=== PATIENT | female | born 1990 | race Two or more races ===

== ENCOUNTER 2016-11-08 02:15 | Emergency (ER) | payer OTHER ==
[~2016-11-08] VITALS: Ht 170.2 cm; Wt 81.6 kg
[2016-11-08] MEDS ORDERED: NKM (02:24)
[2016-11-08 02:33] VITALS: BP 140/86
--- NOTE | 2016-11-08 02:38 | Emergency Room Report ---
History of Present Illness General Chief Complaint: Substance Abuse Source: Patient Present Illness HPI Patient presents after drinking alcohol and doing cocaine. She's had a problem with use of crystal in the past. She was angry at the social situations and decided to try cocaine instead of crystal. She has chest discomfort and paranoid thoughts and is worried about whether she had overdosed. She has a headache. She denies any chest pain nausea vomiting. Diarrhea, brown color. She states is not . Has a headache 5/10, pounding, generalized, not radiate. Denies SI or HI. Never seen therapist or psychiatrist regarding substance abuse or depression. Allergies: Coded Allergies: No Known Allergies (Unverified , 11/08/16) Patient History Past Medical History: see triage record Social History: Reports: alcohol use, drug use, smoking Social History Narrative works at [employer] Last Menstrual Period: a week ago Reviewed Nursing Documentation: PMH: Agreed, PSxH: Agreed Nursing Documentation-PMH Past Medical History: No Stated History Review of Systems All Other Systems: negative except mentioned in HPI Physical Exam Vital Signs Date Time Temp Pulse Resp B/P Pulse Ox O2 Delivery O2 Flow Rate FiO2 11/08/16 02:21 97.9 101 20 140/86 97 Room Air Sp02 EP Interpretation: reviewed, normal General Appearance: well appearing, no apparent distress, GCS 15 Head: normocephalic Eyes: bilateral eye PERRL, bilateral eye normal inspection ENT: moist mucus membranes Neck: supple Respiratory: lungs clear, normal breath sounds Cardiovascular #1: regular rate, rhythm, tachycardia - slight Cardiovascular #2: 2+ radial (R) Gastrointestinal: normal inspection, normal bowel sounds, non tender, no mass, non-distended Musculoskeletal: back normal, gait/station normal, normal range of motion Neurologic: alert, oriented x3, motor strength/tone normal, DTRs symmetric, sensory intact, normal gait, speech normal Psychiatric: no suicidal/homicidal ideation, depressed affect, anxious Skin: normal inspection, warm/dry Medical Decision Making Diagnostic Impression: Primary Impression: Adverse reaction to cocaine Qualified Codes: T40.5X5A - Adverse effect of cocaine, initial encounter ER Course Patient presents after ingestion of alcohol and cocaine. Differential includes acute myocardial infarction, likely abnormalities, renal failure and rhabdomyolysis. She'll receive IV hydration and Tylenol for her headache. In addition to that we will be performing EKG and also electrolytes tox screen. EKG normal. Labs with + tox. Patient improved with observation. Discussed need for outside help - both psych and 12 step. Patient stable for outpatient observation and treatment. Laboratory Tests Test 11/08/16 02:40 White Blood Count 5.9 K/UL (4.8-10.8) Red Blood Count 4.34 M/UL (4.20-5.40) Hemoglobin 13.2 G/DL (12.0-16.0) Hematocrit 39.5 % (37.0-47.0) Mean Corpuscular Volume 91 FL (80-99) Mean Corpuscular Hemoglobin 30.3 PG (27.0-31.0) Mean Corpuscular Hemoglobin Concent 33.4 G/DL (32.0-36.0) Red Cell Distribution Width 12.4 % (11.6-14.8) Platelet Count 325 K/UL (150-450) Mean Platelet Volume 7.1 FL (6.5-10.1) Neutrophils (%) (Auto) 71.2 % (45.0-75.0) Lymphocytes (%) (Auto) 19.3 % (20.0-45.0) L Monocytes (%) (Auto) 7.1 % (1.0-10.0) Eosinophils (%) (Auto) 0.9 % (0.0-3.0) Basophils (%) (Auto) 1.5 % (0.0-2.0) Urine HCG, Qualitative Negative Sodium Level 138 mEQ/L (135-145) Potassium Level 3.6 mEQ/L (3.4-4.9) Chloride Level 103 mEQ/L (98-107) Carbon Dioxide Level 19 mEQ/L (20-30) L Anion Gap 16 (5-15) H Blood Urea Nitrogen 9 mg/dL (7-23) Creatinine 0.5 mg/dL (0.5-0.9) Estimate Glomerular Filtration Rate > 60 mL/min (>60) Glucose Level 131 mg/dL (74-106) H Calcium Level 9.0 mg/dL (8.6-10.2) Total Bilirubin 0.3 mg/dL (0.0-1.2) Aspartate Amino Transferase (AST) 16 U/L (5-40) Alanine Aminotransferase (ALT) 18 U/L (3-33) Alkaline Phosphatase 55 U/L (35-104) Total Creatine Kinase 56 U/L (26-140) Total Protein 7.4 g/dL (6.6-8.7) Albumin 4.2 g/dL (3.5-5.2) Globulin 3.2 g/dL Albumin/Globulin Ratio 1.3 (1.0-2.7) Salicylates Level < 1 mg/dL (10-30) L Urine Opiates Screen Negative (NEGATIVE) Acetaminophen Level < 10 ug/mL (10-30) L Urine Barbiturates Screen Negative (NEGATIVE) Phencyclidine (PCP) Screen Negative (NEGATIVE) Urine Amphetamines Screen Negative (NEGATIVE) Urine Benzodiazepines Screen Negative (NEGATIVE) Urine Cocaine Screen Positive (NEGATIVE) H Urine Marijuana (THC) Screen Negative (NEGATIVE) Serum Alcohol < 10 mg/dL EKG Diagnostic Results Rate: normal Rhythm: NSR ST Segments: no acute changes Rhythm Strip Diag. Results EP Interpretation: yes Rhythm: NSR, no PVC's, no ectopy Last Vital Signs Date Time Temp Pulse Resp B/P Pulse Ox O2 Delivery O2 Flow Rate FiO2 11/08/16 05:00 97.9 78 20 118/71 99 Room Air Status: improved Disposition: HOME, SELF-CARE Condition: Improved [place] M.D. Nov 08, 2016 02:38
[2016-11-08 03:01] LABS: BASOPHILS % (AUTO) 1.5 % (0.0-2.0); EOSINOPHILS % (AUTO) 0.9 % (0.0-3.0); LYMPHOCYTES % (AUTO) 19.3 % (20.0-45.0); MEAN CORPUSCULAR HEMOGLOBIN 30.3 PG (27.0-31.0); MEAN CORPUSCULAR HGB CONC 33.4 G/DL (32.0-36.0); MEAN CORPUSCULAR VOLUME 91 FL (80-99); MEAN PLATELET VOLUME 7.1 FL (6.5-10.1); MONOCYTES % (AUTO) 7.1 % (1.0-10.0); NEUTROPHILS % (AUTO) 71.2 % (45.0-75.0); PLATELET COUNT 325 K/UL (150-450); RED BLOOD COUNT 4.34 M/UL (4.20-5.40); RED CELL DISTRIBUTION WIDTH 12.4 % (11.6-14.8); WHITE BLOOD COUNT 5.9 K/UL (4.8-10.8)
[2016-11-08 03:10] LABS: ACETAMINOPHEN < 10 ug/mL (10-30); ALANINE AMINOTRANSFERASE 18 U/L (3-33); ALBUMIN/GLOBULIN RATIO 1.3 (1.0-2.7); ALCOHOL < 10 mg/dL; ANION GAP 16 (5-15); ASPARTATE AMINO TRANSFERASE 16 U/L (5-40); CARBON DIOXIDE 19 mEQ/L (20-30); CHLORIDE 103 mEQ/L (98-107); CREATININE 0.5 mg/dL (0.5-0.9); GLOMERULAR FILTRATION RATE > 60 mL/min (>60); HEMOLYSIS 7; POTASSIUM 3.6 mEQ/L (3.4-4.9); SODIUM 138 mEQ/L (135-145); TOTAL PROTEIN 7.4 g/dL (6.6-8.7)
[2016-11-08 05:00] VITALS: BP 118/71
--- NOTE | 2016-11-09 00:49 | Cardiology Report ---
APPROVED REPORT EKG Measurement Heart [id number] Normal sinus rhythm Possible Anterior infarct, age undetermined Abnormal ECG
== END 2016-11-08 05:00 | disposition home or self-care (01) ==
LOC: EDBD 02:15 → EMR 02:39
DX: T40.5X5A Adverse effect of cocaine, initial encounter (principal); X58.XXXA Exposure to other specified factors, initial encounter; Y93.9 Activity, unspecified; Y92.9 Unspecified place or not applicable; R51 Headache; F17.200 Nicotine dependence, unspecified, uncomplicated
CPT/HCPCS: 36415; 80053; 80300; 80329; 81025; 82550; 85025; 93005; 96360; 96374; 99284

== ENCOUNTER 2017-12-16 12:37 | Emergency (ER) | payer MEDICAID, OTHER ==
[~2017-12-16] VITALS: Ht 167.6 cm; Wt 95.7 kg
[~2017-12-16 12:37] MED LIST: NKM
[2017-12-16 12:40] VITALS: BP 146/89
[2017-12-16] MEDS ORDERED: Metoclopramide 10mg/10ml Liq NG ONE (13:00)
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
[2017-12-16] MEDS ORDERED: Tetracaine 0.5% Opth 4ml Soln LEFT EYE ONE (14:30)
[2017-12-16] MEDS ORDERED: Fluorescein Strips LEFT EYE ONE (14:30)
--- NOTE | 2017-12-16 14:47 | Emergency Room Report ---
History of Present Illness General Chief Complaint: Headache Source: Patient Present Illness Allergies: Coded Allergies: No Known Allergies (Unverified , 12/16/17) Patient History Last Menstrual Period: September, Now: No Nursing Documentation-[facility] Past Medical History: No Stated History Physical Exam Vital Signs Date Time Temp Pulse Resp B/P (MAP) Pulse Ox O2 Delivery O2 Flow Rate FiO2 12/16/17 12:40 208.9 70 16 146/89 97 Room Air 208.9 Medical Decision Making PA Attestation Dr. Murphy is my supervising Physician whom patient management has been discussed with. Diagnostic Impression: Primary Impression: Concussion Qualified Codes: S06.0X0A - Concussion without loss of consciousness, initial encounter Additional Impressions: Orbital contusion Qualified Codes: S05.12XA - Contusion of eyeball and orbital tissues, left eye , initial encounter Corneal abrasion, left Qualified Codes: S05.02XA - Injury of conjunctiva and corneal abrasion without foreign body, left eye, initial encounter ER Course Pt. presents to the ED c/o [ ] -Denies Loss of consciousness Ddx considered but are not limited to Fracture, dislocation, contusion, concussion Sprain/Strain/Spasm, hematoma Vital signs: are WNL, pt. is afebrile H&PE are most consistent with contusion, no evidence of focal neurological deficit, no loss of consciousness. ORDERS: CT Head and Facial bones no contrast ED INTERVENTIONS: -Tylenol PO - Pt. verbalizes her understanding and agreement with proposed treatment plan. DISCHARGE: At this time pt. is stable for d/c to home. Will provide printed patient care instructions, and any necessary prescriptions. Care plan and follow up instructions have been discussed with the patient prior to discharge. Last Vital Signs Date Time Temp Pulse Resp B/P (MAP) Pulse Ox O2 Delivery O2 Flow Rate FiO2 12/16/17 14:43 98.3 12/16/17 12:40 90 16 146/89 97 Room Air Disposition: HOME, SELF-CARE Condition: Stable Referrals: [facility],REFERR[facility] (PCP) Patient Instructions: Corneal Abrasion, [id number], Head Injury, Adult Additional Instructions: Take medications as directed. -Avoid Motrin, Advil, ibuprofen , Tylenol is recommended Follow up with a Chief Technician in 3 days, even if your symptoms have resolved. --Please review list of primary care clinics, if you do not already have a primary care provider Return sooner to ED if new symptoms occur, or current symptoms become worse. - Please note that this Emergency Department Report was dictated using [employer] turning finisher technology software, occasionally this can lead to erroneous entry secondary to interpretation by the dictation equipment. Rosa Acosta Dec 16, 2017 14:47
[2017-12-16] MEDS ORDERED: OCUFLOX5 ML OP (14:48)
[2017-12-16] MEDS ORDERED: TYLENOL EXTRA500 MG ORAL (14:48)
[2017-12-16 14:55] VITALS: BP 146/89
== END 2017-12-16 15:20 | disposition home or self-care (01) ==
LOC: EMR 13:15
DX: S06.0X0A Concussion without loss of consciousness, initial encounter (principal); S05.12XA Contusion of eyeball and orbital tissues, left eye, initial encounter; X58.XXXA Exposure to other specified factors, initial encounter; Y93.9 Activity, unspecified; Y92.9 Unspecified place or not applicable
CPT/HCPCS: 70450; 70486; 99284

== ENCOUNTER 2018-06-21 03:21 | Emergency (ER) | payer MEDICAID ==
[~2018-06-21] VITALS: Ht 165.1 cm; Wt 95.3 kg
[~2018-06-21 03:21] MED LIST changes: +OCUFLOX5 ML OP; +TYLENOL EXTRA500 MG ORAL
--- NOTE | 2018-06-21 03:40 | Emergency Room Report ---
History of Present Illness General Chief Complaint: Chest Pain Source: Patient, Medical Record Present Illness HPI Is a 27-year-old female with history of gallstone and cocaine abuse in the past. She presents with chief complaint of chest pain. Onset about one to 2 hours ago. Initially she said pain to her back and now radiating to the front. Pain is to the mid upper chest area. Sharp in nature. Reproducible. No nausea no vomiting. No diaphoresis been no exertional component. No abdominal pain. Pain is 8 out of 10. Has not take anything for this. Allergies: Coded Allergies: No Known Allergies (Unverified , 06/21/18) Patient History Past Medical History: see triage record, old chart reviewed Past Surgical History: other Pertinent Family History: none Social History: Reports: drug use - History of cocaine; Denies: smoking Last Menstrual Period: 06-12-2018 Now: No Immunizations: other Reviewed Nursing Documentation: PMH: Agreed; PSxH: Agreed Nursing Documentation-PMH Past Medical History: No Stated History Review of Systems Eye: Denies: eye pain, blurred vision ENT: Denies: ear pain, nose congestion, throat swelling Respiratory: Denies: cough, shortness of breath Cardiovascular: Reports: chest pain; Denies: palpitations Gastrointestinal: Denies: abdominal pain, diarrhea, nausea, vomiting Musculoskeletal: Denies: back pain, joint pain Skin: Denies: rash Neurological: Denies: headache, numbness Endocrine: Denies: increased thirst, increased urine Hematologic/Lymphatic: Denies: easy bruising All Other Systems: negative except mentioned in HPI Physical Exam Vital Signs Date Time Temp Pulse Resp B/P (MAP) Pulse Ox O2 Delivery O2 Flow Rate FiO2 06/21/18 03:23 98.1 78 18 144/88 98 Room Air vitals unremarkable Sp02 EP Interpretation: reviewed, normal General Appearance: well appearing, no apparent distress, alert, obese Head: normocephalic, atraumatic Eyes: bilateral eye PERRL, bilateral eye EOMI ENT: hearing grossly normal, normal pharynx Neck: full range of motion, supple, no meningismus Respiratory: lungs clear, normal breath sounds, other - Pain reproducible to the mid upper chest Cardiovascular #1: regular rate, rhythm, no murmur Gastrointestinal: normal bowel sounds, non tender, no mass, no organomegaly, no bruit, non-distended Musculoskeletal: back normal, gait/station normal, normal range of motion Psychiatric: mood/affect normal Skin: warm/dry Medical Decision Making Diagnostic Impression: Primary Impression: Chest pain Qualified Codes: R07.9 - Chest pain, unspecified ER Course She presents with chest pain. Labs unremarkable. Pain resolved after GI cocktail. This may be GI related. No evidence of ACS, PE, dissection to name a few. We'll discharge home. EKG Diagnostic Results Rate: normal Rhythm: NSR ST Segments: no acute changes Rhythm Strip Diag. Results EP Interpretation: yes Rate: 80 Rhythm: NSR, no PVC's, no ectopy Last Vital Signs Date Time Temp Pulse Resp B/P (MAP) Pulse Ox O2 Delivery O2 Flow Rate FiO2 06/21/18 03:23 98.1 78 18 144/88 98 Room Air Status: improved Disposition: HOME, SELF-CARE Condition: Stable Referrals: [facility],REFERR[facility] (PCP) Patient Instructions: Nonspecific Chest Pain Additional Instructions: Follow-up with your doctor in 7 days. Return if symptom worsen. Naren Mccormack MD Jun 21, 2018 03:40
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
[2018-06-21] MEDS ORDERED: Mylanta II UD 30ml ORAL ONE (03:45)
[2018-06-21] MEDS ORDERED: Lidocaine 2% Visc 15ml soln ORAL ONE (03:45)
[2018-06-21 03:46] VITALS: BP 132/82
--- NOTE | 2018-06-21 03:58 | NUR ---
ED Nurse Note: Patient tolerated GI cocktail well, will continue to monitor, boyfriend is currently at bedside.
[2018-06-21 03:59] LABS: APPEARANCE,URINE CLEAR; BILIRUBIN, URINE NEGATIVE (NEGATIVE); COLOR,URINE PALE YELLOW; GLUCOSE, URINE (UA) NEGATIVE (NEGATIVE); KETONES,URINE NEGATIVE (NEGATIVE); LEUKOCYTE ESTERASE ,URINE NEGATIVE (NEGATIVE); NITRITE,URINE NEGATIVE (NEGATIVE); PH,URINE 8 (4.5-8.0); PROTEIN,URINE NEGATIVE (NEGATIVE); UROBILINOGEN,URINE NORMAL MG/DL (0.0-1.0)
[2018-06-21 04:05] LABS: ANION GAP 8 mmol/L (5-15); BLOOD UREA NITROGEN 10 mg/dL (7-18); CALCIUM 8.4 MG/DL (8.5-10.1); CARBON DIOXIDE 28 MMOL/L (21-32); CHLORIDE 103 MMOL/L (98-107); CREATININE 0.6 MG/DL (0.55-1.30); POTASSIUM 3.5 MMOL/L (3.5-5.1); SODIUM 139 MMOL/L (136-145)
[2018-06-21 04:06] LABS: BASOPHILS % (AUTO) 1.4 % (0.0-2.0); EOSINOPHILS % (AUTO) 2.4 % (0.0-3.0); HEMATOCRIT 38.1 % (37.0-47.0); HEMOGLOBIN 13.3 G/DL (12.0-16.0); LYMPHOCYTES % (AUTO) 41.2 % (20.0-45.0); MEAN CORPUSCULAR VOLUME 87 FL (80-99); MONOCYTES % (AUTO) 7.5 % (1.0-10.0); NEUTROPHILS % (AUTO) 47.5 % (45.0-75.0); PLATELET COUNT 325 K/UL (150-450); RED BLOOD COUNT 4.39 M/UL (4.20-5.40); RED CELL DISTRIBUTION WIDTH 12.6 % (11.6-14.8); WHITE BLOOD COUNT 6.2 K/UL (4.8-10.8)
[2018-06-21 04:10] LABS: ALANINE AMINOTRANSFERASE 57 U/L (12-78); ALBUMIN 3.7 G/DL (3.4-5.0); ALKALINE PHOSPHATASE 52 U/L (46-116); ASPARTATE AMINO TRANSFERASE 56 U/L (15-37); BILIRUBIN,TOTAL 0.4 MG/DL (0.2-1.0)
--- NOTE | 2018-06-21 04:31 | NUR ---
ED Nurse Note: Patient cleared for discharge by TUNG, patient is a&OX4, ambulatory with steady, vital signs stable reports no pain at this time, IV removed ID band removed,verbalized understanding of discharge instructions, departed with all personal items accompanied by her boyfriend.
[2018-06-21 04:33] VITALS: BP 132/82
--- NOTE | 2018-06-23 12:49 | Cardiology Report ---
APPROVED REPORT EKG Measurement Heart [id number] Normal sinus rhythm Cannot rule out Anterior infarct, age undetermined Abnormal ECG
== END 2018-06-21 04:34 | disposition home or self-care (01) ==
LOC: EMR 03:37
DX: R07.9 Chest pain, unspecified (principal)
CPT/HCPCS: 36415; 80053; 80307; 81003; 81025; 84484; 85025; 93005; 99284